=== PATIENT | male | born 1970 | race Caucasian/White ===

== ENCOUNTER → 2016-12-07 | Outpatient (CLI) | payer OTHER ==
--- NOTE | 2016-12-12 08:43 | SLEEPCENT ---
DATE OF PROCEDURE: 12/07/2016 ORDERED BY: Sharon Mendes. INTERPRETATION: Nocturnal polysomnography was performed due to concern for the obstructive sleep apnea syndrome in this patient with a history of excessive somnolence and nonrestorative sleep. 6 hours and 50 minutes of data were reviewed. There were 332 minutes of sleep identified. Sleep latency was prolonged at 32 minutes. REM latency was prolonged at 286 minutes. Sleep architecture showed poor progression. Overall sleep efficiency was 82%. There were two brief REM periods appreciated late in the study. The patient's EKG shows a sinus rhythm with an average heart rate of 50 beats per minute. EEG shows coarsening in background possibly medication effect. There is also some alpha intrusion possibly related to chronic pain. No focal events were identified. There were 20 respiratory events identified of 10 seconds in duration or greater for an apnea-hypopnea index of 3.6 which is within normal limits. The events that were seen were predominately seen in the supine posture. Snoring was noted throughout the study and arousals from respiratory events when arousals from snoring were included occurred 4.5 times per hour. There were no significant oxygen desaturations and limb leads were quiet. Remaining measures of sleep physiology were normal. IMPRESSION: Normal nocturnal polysomnography with snoring. RECOMMENDATION: Sleep position retraining for avoidance of the supine posture may help to address the snoring issue.
== END ==
LOC: M SLEEP 19:33
PROVIDERS: ATTEND Nurse Practitioner Adult Health
DX: R06.83 Snoring (principal)

== ENCOUNTER → 2020-11-12 | Outpatient (CLI) | payer OTHER ==
--- NOTE | 2020-11-12 19:01 | REPVR ---
PROCEDURE INFORMATION: Exam: MR Cervical Spine Without Contrast Exam date and time: 11/12/2020 3:03 PM Age: 50 years old Clinical indication: Neck pain; Additional info: Cervical radiculopathy TECHNIQUE: Imaging protocol: Multiplanar magnetic resonance images of the cervical spine without contrast. COMPARISON: No relevant prior studies available. FINDINGS: Vertebrae: Mild lower cervical levoconvex scoliosis. Trace 1-2 mm of degenerative retrolisthesis of C3 on C4. No acute fracture seen. Spinal cord: Normal signal. No cord compression. There is disc desiccation throughout. Disc height loss and spondylosis is [id number] at C5-C6 and C6-C7, mild at C3-C4 and C7-T1. C2-C3: No significant disc disease. No significant spinal stenosis. C3-C4: Slight retrolisthesis. Disc osteophyte complex does not contribute to central spinal canal stenosis. Uncovertebral and facet arthropathy causing moderate bilateral neural foraminal stenoses. C4-C5: Mild disc bulge does not contribute to central spinal canal stenosis. Uncovertebral and facet arthropathy causing moderate right neural foraminal stenosis. No significant left neural foraminal narrowing. C5-C6: Disc osteophyte complex does not contribute to significant central spinal canal stenosis. Uncovertebral and facet arthropathy causing severe right and mild left neural foraminal stenoses. C6-C7: Disc osteophyte complex does not contribute to significant central spinal canal stenosis. Uncovertebral and facet arthropathy causing severe right neural foraminal stenosis. The left neural foramen remains patent. C7-T1: Mild disc bulge does not contribute to central spinal canal stenosis. An approximate 3-4 mm left foraminal disc protrusion as well as facet arthropathy causing moderate left neural foraminal stenosis, disc material potentially contacting the exiting left C8 nerve root. Right uncovertebral and facet arthropathy causing moderate right neural foraminal stenosis. Soft tissues: Unremarkable. Vertebral arteries: Expected flow voids in the vertebral arteries. IMPRESSION: Multilevel neural foraminal stenoses may be cause of radiculopathy. There is a left foraminal disc protrusion at C7-T1. Electronically signed by: Clair Ortiz On 11/12/2020 19:00:26 PM
== END ==
LOC: M RAD 14:02
PROVIDERS: ATTEND Pain Medicine Interventional Pain Medicine
DX: M54.12 Radiculopathy, cervical region (principal)

== ENCOUNTER → 2020-12-17 | Outpatient (REF) ==
--- NOTE | 2020-12-17 10:57 | REP ---
INDICATION: PAIN COMPARISON: None. TECHNIQUE: AP, lateral, bilateral oblique views right foot. FINDINGS: The osseous structures and joint spaces are intact and essentially normal. Subtle irregularity at the 5th toe mid/distal phalanges may represent old injury and should be correlated clinically. No significant degenerative changes are appreciated. Surrounding soft tissues are unremarkable. No subcutaneous emphysema or radiodense foreign body. IMPRESSION: Subtle irregularity at the 5th toe middle/distal phalanges requires clinical correlation to exclude injury. Otherwise normal age-appropriate examination. <Electronically signed by Nikko Montoya > 12/17/20 [id number]
--- NOTE | 2020-12-17 10:58 | REP ---
INDICATION: PAIN COMPARISON: None. TECHNIQUE: Internal rotation, external rotation, and Y view. FINDINGS: No acute fracture or dislocation. The acromioclavicular and glenohumeral joints are intact. No periarticular calcifications or degenerative changes are appreciated. Sub acromial space is normal. Surrounding soft tissues are unremarkable. IMPRESSION: Normal age-appropriate right shoulder radiographs. <Electronically signed by Nikko Montoya > 12/17/20 [id number]
== END ==
LOC: M PLAIMG 10:07
PROVIDERS: ATTEND Internal Medicine
DX: M25.511 Pain in right shoulder (principal); M79.671 Pain in right foot

== ENCOUNTER → 2021-03-18 | Outpatient (REF) | payer OTHER ==
[2021-03-18 12:02] LABS: APPEARANCE, URINE HAZY (CLEAR); BACTERIA, URINE AUTO NEGATIVE (NEGATIVE); BILIRUBIN, URINE AUTO NEGATIVE (NEGATIVE); BLOOD, URINE BLOOD NEGATIVE (NEGATIVE); COLOR, URINE YELLOW (YELLOW); GLUCOSE, URINE (UA) AUTO NEGATIVE (NEGATIVE); KETONE, URINE AUTO NEGATIVE (NEGATIVE); LEUKOCYTE ESTERASE, URINE AUTO NEGATIVE (NEGATIVE); NITRITE, URINE AUTO NEGATIVE (NEGATIVE); PROTEIN, URINE AUTO NEGATIVE (NEGATIVE); RBC, URINE AUTO 0 /HPF (0-3); SPECIFIC GRAVITY URINE AUTO 1.006 (1.002-1.035); SQUAMOUS EPITHELIAL CELL UR AU 0 /HPF (0-6); UROBILINOGEN, URINE AUTO 0.2 mg/dL (0.0-2.0); WBC, URINE AUTO 0 /HPF (0-3)
== END ==
LOC: M SMT 11:41
PROVIDERS: ATTEND Urology
DX: N39.43 Post-void dribbling (principal)
CPT/HCPCS: 51798; 81001; G0463

== ENCOUNTER → 2021-06-14 | Outpatient (CLI) | payer OTHER | LOC: M LABSMTC 09:24 | PROVIDERS: ATTEND Anesthesiology | DX: Z01.812 Encounter for preprocedural laboratory examination (principal); Z20.822 Contact with and (suspected) exposure to COVID-19 ==

== ENCOUNTER 2021-06-18 09:08 | Day surgery (SDC) | payer OTHER ==
[~2021-06-18] VITALS: Ht 167.6 cm; Wt 69.9 kg
[~2021-06-18 09:08] MED LIST: NS 1,000 ML IV ONE
[2021-06-18] MEDS ORDERED: LIDOCAINE 2% 100MG/5ML SDV (FOR ANES.) As Ordered ONE (09:36)
[2021-06-18] MEDS ORDERED: propofoL 500 MG/50 ML VIAL As Ordered ONE (09:36)
[2021-06-18] MEDS ORDERED: fentaNYL 100 MCG/2 ML INJECTION As Ordered ONE (09:37)
[2021-06-18] MEDS ORDERED: GLYCOPYRROLATE INJ 0.2 MG/ML 2 ML VIAL As Ordered ONE (10:55)
[2021-06-18 11:45] VITALS: BP 115/78
== END 2021-06-18 11:55 | disposition home or self-care (01) ==
LOC: M OPP 09:08
PROVIDERS: ATTEND Surgery
DX: K92.1 Melena (principal); K57.30 Diverticulosis of large intestine without perforation or abscess without bleeding; K64.0 First degree hemorrhoids; Z80.0 Family history of malignant neoplasm of digestive organs; K29.80 Duodenitis without bleeding; K25.4 Chronic or unspecified gastric ulcer with hemorrhage
CPT/HCPCS: 43239; 45378; 88305; J3010

== ENCOUNTER → 2022-08-27 | Outpatient (REF) | payer OTHER | LOC: M SFHCDERM 13:58 | PROVIDERS: ATTEND Nurse Practitioner Family | DX: D48.9 Neoplasm of uncertain behavior, unspecified (principal); L57.0 Actinic keratosis ==

== ENCOUNTER 2023-06-17 19:38 | Observation (INO) | payer OTHER ==
[~2023-06-17] VITALS: Ht 167.6 cm; Wt 69.8 kg
[2023-06-17 21:14] LABS: BASO # 0.1 10^3/uL (0.0-0.2); BASO % 1.2 % (0.0-1.0); EOS # 0.1 10^3/uL (0.0-0.5); EOS % 3.3 % (0.0-3.0); HEMATOCRIT 38.2 % (42.0-52.0); HEMOGLOBIN 13.1 g/dl (13.5-17.5); LYMPH # 1.8 10^3/uL (1.5-5.0); LYMPH % 41.3 % (24.0-44.0); MEAN CORPUSCULAR HGB CONC 34.3 g/dl (32.0-36.5); MEAN CORPUSCULAR VOLUME 93.4 fl (80.0-96.0); MONO # 0.5 10^3/uL (0.0-0.8); MONO % 10.6 % (2.0-8.0); NEUTROPHILS # 1.9 10^3/uL (1.5-8.5); NEUTROPHILS % 43.6 % (36.0-66.0); PLATELET COUNT, AUTOMATED 286 10^3/uL (150-450); RED BLOOD COUNT 4.09 10^6/uL (4.30-6.10); WHITE BLOOD COUNT 4.2 10^3/uL (4.0-10.0)
[2023-06-17] MEDS: ceFAZolin SOD 2 GM in IV 1 EA IV ONE (21:21)
[2023-06-17] MEDS: BOOSTRIX VACCINE (TETANUS/DIPHTH/ACEL. PERTUSSIS) 0.5ML SYR IM ONE (21:21)
[2023-06-17 21:33] LABS: BLOOD UREA NITROGEN 21 MG/DL (9-23); CALCIUM LEVEL 8.9 MG/DL (8.5-10.1); CARBON DIOXIDE LEVEL 29 MMOL/L (20-31); CHLORIDE LEVEL 105 MMOL/L (98-107); CREATININE FOR GFR 0.89 MG/DL (0.70-1.30); GLOMERULAR FILTRATION RATE > 60.0 (>56); GLUCOSE, FASTING 110 MG/DL (60-100); POTASSIUM SERUM 4.4 MMOL/L (3.5-5.1); SODIUM LEVEL 138 MMOL/L (136-145)
[2023-06-17] MEDS ORDERED: ACETAMINOPHEN 1000MG 100ML IV BAG As Ordered ONE (22:50)
[2023-06-17] MEDS: LIDOCAINE 1% MDV 20ML VIAL As Ordered ONE (22:51)
[2023-06-18] VITALS (8 sets, daily range): BP systolic 116–151; BP diastolic 71–88; TEMP 97.2–97.9; O2SAT 94–99
[2023-06-18] MEDS: LR 1,000 ML IV SCH
[2023-06-18] MEDS ORDERED: HOME MED LIST COMPLETE! XX SCH (02:25)
[2023-06-18] MEDS ORDERED: NORCO, ANEXSIA 5/325MG TABLET (HYDROcodone/ACETAMINOPHEN) PO PRN (02:30)
[2023-06-18] MEDS ORDERED: ONDANSETRON 4MG 2ML VIAL IV PRN (02:30)
[2023-06-18] MEDS: ceFAZolin SOD 2 GM in IV 1 EA IV SCH (03:42)
[2023-06-18] MEDS ORDERED: DICL50TA2 PO (11:04)
[2023-06-18] MEDS ORDERED: CEPH500C PO (11:08)
[2023-06-19] MEDS ORDERED: CEPHALEXIN 500 MG CAP PO SCH (11:10)
== END 2023-06-18 13:34 | disposition home or self-care (01) ==
LOC: M ED 19:38 → M MSPAV 22:14 → M SDC 22:31 → M MSPAV 22:32 → M SDC 06-18 00:10
PROVIDERS: ADMIT Orthopaedic Surgery; ATTEND Orthopaedic Surgery
DX: S68.623A Partial traumatic transphalangeal amputation of left middle finger, initial encounter (principal); W23.1XXA Caught, crushed, jammed, or pinched between stationary objects, initial encounter; Y92.015 Private garage of single-family (private) house as the place of occurrence of the external cause; Y99.9 Unspecified external cause status; Y93.89 Activity, other specified
CPT/HCPCS: 26951; 73140; 80048; 85025; 86850; 87635; 90471; 90715; 96365; 96366; 99284; G0378; J0131; J0665; J0690

== ENCOUNTER → 2023-09-10 | Outpatient (CLI) | payer OTHER ==
[~2023-09-10] MED LIST changes: +CEPH500C PO; +DICL50TA2 PO; -NS 1,000 ML IV ONE
== END ==
LOC: M WUC 13:02
PROVIDERS: ATTEND Physician Assistant
DX: M79.642 Pain in left hand (principal)

== ENCOUNTER → 2023-10-18 | Outpatient (REF) | LOC: M LAB 10:29 | PROVIDERS: ATTEND Nurse Practitioner Adult Health | DX: Z00.00 Encounter for general adult medical examination without abnormal findings (principal) ==

== ENCOUNTER 2025-02-05 13:04 | Emergency (ER) | payer OTHER ==
[~2025-02-05] VITALS: Ht 165.1 cm; Wt 72.8 kg
[2025-02-05 21:21] VITALS: BP 120/78; TEMP 97.4; O2SAT 97
== END 2025-02-05 21:41 | disposition home or self-care (01) ==
LOC: M ED 13:04
DX: S86.912A Strain of unspecified muscle(s) and tendon(s) at lower leg level, left leg, initial encounter (principal); X58.XXXA Exposure to other specified factors, initial encounter; Y92.9 Unspecified place or not applicable; Y93.89 Activity, other specified; Y99.9 Unspecified external cause status